=== PATIENT | male | born 1995 | race Caucasian/White ===

== ENCOUNTER 2019-07-18 13:56 | Emergency (ER) | payer OTHER ==
[2019-07-18] MEDS ORDERED: Ondansetron 4 MG Tab.DIS PO ONE (14:34)
--- NOTE | 2019-07-18 14:39 | EDM.PDOC ---
ED HPI GENERAL MEDICAL PROBLEM - General Chief Complaint: Abdominal Pain Stated Complaint: VOMITTING, DIARRHEA Time Seen by Provider: 07/18/19 14:15 Source of Information: Reports: Patient History Limitations: Reports: No Limitations - History of Present Illness INITIAL COMMENTS - FREE TEXT/NARRATIVE: Orlando awoke at 3 pm yesterday with generalized abdominal pain, nonradiating, with some nausea but no vomiting. He had 1 formed stool, followed by numerous watery stools without BRB or mucous detected. Sxs have persisted today, and can keep only small amounts of water orally. There is no PMH of IBD. He has tried no meds. Abdominal, mostly LUQ Pain Score (Numeric/FACES): 5 - Related Data Allergies Allergy/AdvReac Type Severity Reaction Status Date / Time No Known Allergies Allergy Verified 07/18/19 14:06 Home Meds: Home Meds NK [No Known Home Meds] 07/18/19 [History] Past Medical History - Past Health History Medical/Surgical History: Denies Medical/Surgical History Neurological History: Reports: Concussion Psychiatric History: Reports: Anxiety, Depression - Past Surgical History HEENT Surgical History: Reports: Oral Surgery Social & Family History - Family History Family Medical History: Noncontributory - Tobacco Use Smoking Status *Q: Current Every Day Smoker Years of Tobacco use: 8 Packs/Tins Daily: 1 - Caffeine Use Caffeine Use: Reports: Soda - Recreational Drug Use Recreational Drug Type: Reports: Marijuana/Hashish Recreational Drug Use Frequency: Daily ED ROS GENERAL - Review of Systems Review Of Systems: Comprehensive ROS is negative, except as noted in HPI. ED EXAM, GI/ABD - Physical Exam Exam: See Below Exam Limited By: No Limitations General Appearance: Alert, WD/WN, Mild Distress, Thin Eyes: Bilateral: Normal Appearance, EOMI Ears: Normal External Exam Nose: Normal Inspection Throat/Mouth: Normal Inspection, Normal Lips, Normal Gums, Normal Oropharynx, Normal Voice, No Airway Compromise Head: Normocephalic Neck: Normal Inspection, Supple, Non-Tender Respiratory/Chest: Lungs Clear, Chest Non-Tender Cardiovascular: Regular Rate, Rhythm GI/Abdominal Exam: Normal Bowel Sounds, Soft, Non-Tender, No Organomegaly, No Distention, No Mass (Male) Exam: Deferred Rectal (Males) Exam: Deferred Back Exam: Normal Inspection Extremities: Normal Inspection Neurological: Alert, Oriented, CN II-XII Intact, No Motor/Sensory Deficits Psychiatric: Normal Affect, Normal Mood Skin Exam: Warm, Dry, Intact, Normal Color Lymphatic: No Adenopathy Course - Vital Signs Text/Narrative:: Following assessment, Orlando was administered Zofran 4mg ODT as directed pending results of labwork. Screening CBC, BMP and UA are baseline. Probable gastroenteritis. Last Recorded V/S: Last Vital Signs Temp 36.4 C 07/18/19 14:00 Pulse 60 07/18/19 14:00 Resp 18 07/18/19 14:00 BP 134/69 07/18/19 14:00 Pulse Ox 100 07/18/19 14:00 - Orders/Labs/Meds Orders: Active Orders 24 hr Category Date Time Status UA W/MICROSCOPIC [URIN] Stat Lab 07/18/19 14:34 Ordered Labs: Laboratory Tests 07/18/19 07/18/19 Range/Units 14:30 14:30 WBC 6.2 (4.5-12.0) X10-3/uL RBC 5.31 (4.30-5.75) x10(6)uL Hgb 16.5 (13.5-17.8) g/dL Hct 48.1 (30.0-51.3) % MCV 90.5 (80-96) fL MCH 31.1 (27.7-33.6) pg MCHC 34.3 (32.2-35.4) g/dL RDW 12.2 (11.5-15.5) % Plt Count 153 (125-369) X10(3)uL MPV 8.2 (7.4-10.4) fL Neut % (Auto) 77.9 (46-82) % Lymph % (Auto) 9.5 L (13-37) % [place] % (Auto) 9.7 (4-12) % Eos % (Auto) 1 (1.0-5.0) % Baso % (Auto) 2 (0-2) % Neut # (Auto) 4.9 (1.6-8.3) # Lymph # (Auto) 0.6 (0.6-5.0) # [place] # (Auto) 0.6 (0.0-1.3) # Eos # (Auto) 0.0 (0.0-0.8) # Baso # (Auto) 0.1 (0.0-0.2) # Sodium 139 (135-145) mmol/L Potassium 3.5 (3.5-5.3) mmol/L Chloride 104 (100-110) mmol/L Carbon Dioxide 21 (21-32) mmol/L BUN 9 (7-18) mg/dL Creatinine 0.8 (0.70-1.30) mg/dL Est Cr Clr Drug Dosing 156.28 mL/min Estimated GFR (MDRD) > 60 (>60) BUN/Creatinine Ratio 11.3 (9-20) Glucose 117 H (80-116) mg/dL Calcium 8.9 (8.6-10.2) mg/dL Meds: Medications Discontinued Medications Generic Name Dose Route Start Last Admin Trade Name Freq PRN Reason Stop Dose Admin Ondansetron HCl 4 mg 07/18/19 14:34 07/18/19 14:46 Zofran Odt PO 07/18/19 14:35 4 mg ONETIME ONE Administration Departure - Departure Time of Disposition: 15:18 Disposition: Home, Self-Care 01 Condition: Fair Clinical Impression: Gastroenteritis - Discharge Information *PRESCRIPTION DRUG MONITORING PROGRAM REVIEWED*: Not Applicable *COPY OF PRESCRIPTION DRUG MONITORING REPORT IN PATIENT SASCHA: Not Applicable Referrals: Jer Membreno MD [Primary Care Provider] - Forms: ED Department Discharge Sepsis Event Note - Evaluation Sepsis Screening Result: No Definite Risk - Focused Exam Vital Signs: Vital Signs Temp Pulse Resp BP Pulse Ox 07/18/19 14:00 36.4 C 60 18 134/69 100 Date Exam was Performed: 07/18/19 Time Exam was Performed: 15:17 - Problem List & Annotations (1) Gastroenteritis SNOMED Code(s): 43314811 Code(s): K52.9 - NONINFECTIVE GASTROENTERITIS AND COLITIS, UNSPECIFIED Status: Acute Current Visit: Yes Annotation/Comment:: I suggested clear liquids, advance diet as tolerated; Imodium for diarrhea, Tylenol and rest. - Problem List Review Problem List Initiated/Reviewed/Updated: Yes - My Orders Last 24 Hours: My Active Orders 07/18/19 14:34 UA W/MICROSCOPIC [URIN] Stat - Assessment/Plan Last 24 Hours: My Active Orders 07/18/19 14:34 UA W/MICROSCOPIC [URIN] Stat Plan: Follow up with PCP if needed.
[2019-07-18 15:48] VITALS: BP 133/72; PULSE 58
== END 2019-07-18 15:26 | disposition home or self-care (01) ==
LOC: FB.ED 13:56
DX: K52.9 Noninfective gastroenteritis and colitis, unspecified (principal); F17.210 Nicotine dependence, cigarettes, uncomplicated
CPT/HCPCS: 36415; 80048; 85025; 99284; A9270

== ENCOUNTER 2019-07-20 18:59 | Emergency (ER) | payer OTHER ==
[2019-07-20] MEDS ORDERED: Ondansetron 4 MG Tab.DIS PO ONE (19:00)
[2019-07-20] MEDS ORDERED: Sodium Chloride 0.9% 10 ML Syringe FLUSH PRN (19:21)
[2019-07-20] MEDS: Sodium Chloride 0.9% 1,000 ML IV ONE ×2 (19:30→20:45)
--- NOTE | 2019-07-20 19:38 | EDM.PDOC ---
ED HPI GENERAL MEDICAL PROBLEM - General Chief Complaint: Abdominal Pain Stated Complaint: STOMACH ISSUES Time Seen by Provider: 07/20/19 19:33 Source of Information: Reports: Patient History Limitations: Reports: No Limitations - History of Present Illness INITIAL COMMENTS - FREE TEXT/NARRATIVE: Presents with epigastric pain, nausea and diarrhea x 2 days (> 6 unformed stools per day). Patient awoke @1 am on 07/18/19 with these symptoms, he had eaten a burrito for supper prior to going to bed. Diarrhea is watery yellow, non -bloody. No fevers. Denies recent travel or use of antibiotics. No prior abdominal surgeries. He does smoke cigarettes, drinks alcohol occasionally (not recently), and does admit to occasional marijuana use. Onset Date: 07/18/19 Location: Reports: Abdomen Severity: Moderate - Related Data Allergies Allergy/AdvReac Type Severity Reaction Status Date / Time No Known Allergies Allergy Verified 07/20/19 22:01 Home Meds: Home Meds Pantoprazole Sodium [Protonix] 40 mg PO DAILY #15 tablet. 07/20/19 [Rx] Past Medical History Neurological History: Reports: Concussion Psychiatric History: Reports: Anxiety, Depression - Past Surgical History HEENT Surgical History: Reports: Oral Surgery, Other (See Below) Other HEENT Surgeries/Procedures: Wisom teeth extraction. Social & Family History - Family History Family Medical History: Noncontributory - Tobacco Use Smoking Status *Q: Current Every Day Smoker Tobacco Use Within Last Twelve Months: Cigarettes Years of Tobacco use: 8 Packs/Tins Daily: 1 - Caffeine Use Caffeine Use: Reports: Soda - Alcohol Use Alcohol Use History: Yes Alcohol Use Frequency: Rarely - Recreational Drug Use Recreational Drug Use: Yes Recreational Drug Type: Reports: Marijuana/Hashish Other Recreational Drug Type: States he used marijuana earlier today. ED ROS GENERAL - Review of Systems Review Of Systems: Comprehensive ROS is negative, except as noted in HPI. ED EXAM, GI/ABD - Physical Exam Exam: See Below Exam Limited By: No Limitations General Appearance: Alert, WD/WN, No Apparent Distress Nose: Normal Inspection Throat/Mouth: No Airway Compromise Head: Atraumatic, Normocephalic Respiratory/Chest: No Respiratory Distress, Lungs Clear, Normal Breath Sounds Cardiovascular: Regular Rate, Rhythm, No Murmur GI/Abdominal Exam: Normal Bowel Sounds, Soft, No Distention, Tender (epigastric) Back Exam: Normal Inspection, Full Range of Motion Extremities: Normal Range of Motion Neurological: Alert, Normal Cognition, No Motor/Sensory Deficits Psychiatric: Normal Affect, Normal Mood Skin Exam: Warm, Dry, Intact Course - Vital Signs Last Recorded V/S: Last Vital Signs Temp 36.8 C 07/20/19 19:05 Pulse 67 07/20/19 19:05 Resp 18 07/20/19 19:05 BP 136/71 07/20/19 19:05 Pulse Ox 99 07/20/19 19:05 - Orders/Labs/Meds Orders: Active Orders 24 hr Category Date Time Status Abdomen Pelvis w Cont [CT] Stat Exams 07/20/19 19:26 Taken CULTURE URINE [RM] Stat Lab 07/20/19 22:00 Ordered OVA + PARASITE EXAM Stat Lab 07/20/19 21:30 Received STOOL CULTURE Stat Lab 07/20/19 21:30 Received Sodium Chloride 0.9% [Saline Flush] Med 07/20/19 19:21 Active 10 ml FLUSH ASDIRECTED PRN Saline Lock Insert [OM.PC] Routine Oth 07/20/19 19:21 Ordered Medication Orders Sodium Chloride (Saline Flush) 10 ml FLUSH ASDIRECTED PRN PRN Reason: Keep Vein Open Labs: Laboratory Tests 07/20/19 07/20/19 07/20/19 Range/Units 19:50 19:50 19:50 WBC 6.7 (4.5-12.0) X10-3/uL RBC 5.39 (4.30-5.75) x10(6)uL Hgb 16.6 (13.5-17.8) g/dL Hct 48.4 (30.0-51.3) % MCV 89.7 (80-96) fL MCH 30.8 (27.7-33.6) pg MCHC 34.3 (32.2-35.4) g/dL RDW 11.9 (11.5-15.5) % Plt Count 144 (125-369) X10(3)uL MPV 8.2 (7.4-10.4) fL Neut % (Auto) 75.0 (46-82) % Lymph % (Auto) 8.6 L (13-37) % [place] % (Auto) 14.5 H (4-12) % Eos % (Auto) 1 (1.0-5.0) % Baso % (Auto) 1 (0-2) % Neut # (Auto) 4.8 (1.6-8.3) # Lymph # (Auto) 0.6 (0.6-5.0) # [place] # (Auto) 1.0 (0.0-1.3) # Eos # (Auto) 0.1 (0.0-0.8) # Baso # (Auto) 0.1 (0.0-0.2) # Sodium 131 L (135-145) mmol/L Potassium 3.4 L (3.5-5.3) mmol/L Chloride 96 L D (100-110) mmol/L Carbon Dioxide 21 (21-32) mmol/L BUN 10 (7-18) mg/dL Creatinine 1.0 (0.70-1.30) mg/dL Est Cr Clr Drug Dosing 125.02 mL/min Estimated GFR (MDRD) > 60 (>60) BUN/Creatinine Ratio 10.0 (9-20) Glucose 108 (80-116) mg/dL Calcium 8.3 L (8.6-10.2) mg/dL Total Bilirubin 1.3 (0.1-1.3) mg/dL AST 39 H (5-25) IU/L ALT 23 (12-36) U/L Alkaline Phosphatase 63 (56-112) IU/L Total Protein 6.4 (6.0-8.0) g/dL Albumin 3.2 L (3.5-5.2) g/dL Globulin 3.2 g/dL Albumin/Globulin Ratio 1.0 Lipase 80 (73-393) U/L Urine Color (YELLOW) Urine Appearance (CLEAR) Urine pH (5.0-6.5) Ur Specific [place] (1.010-1.025) Urine Protein (NEGATIVE) mg/dL Urine Glucose (UA) (NORMAL) mg/dL Urine Ketones (NEGATIVE) mg/dL Urine Occult Blood (NEGATIVE) Urine Nitrite (NEGATIVE) Urine Bilirubin (NEGATIVE) Urine Urobilinogen (NEGATIVE) mg/dL Ur Leukocyte Esterase (NEGATIVE) Urine RBC (0-5) Urine WBC (0-5) Ur Squamous Epith Cells (NS,R,O) Urine Bacteria (NS) 07/20/19 Range/Units 21:30 WBC (4.5-12.0) X10-3/uL RBC (4.30-5.75) x10(6)uL Hgb (13.5-17.8) g/dL Hct (30.0-51.3) % MCV (80-96) fL MCH (27.7-33.6) pg MCHC (32.2-35.4) g/dL RDW (11.5-15.5) % Plt Count (125-369) X10(3)uL MPV (7.4-10.4) fL Neut % (Auto) (46-82) % Lymph % (Auto) (13-37) % [place] % (Auto) (4-12) % Eos % (Auto) (1.0-5.0) % Baso % (Auto) (0-2) % Neut # (Auto) (1.6-8.3) # Lymph # (Auto) (0.6-5.0) # [place] # (Auto) (0.0-1.3) # Eos # (Auto) (0.0-0.8) # Baso # (Auto) (0.0-0.2) # Sodium (135-145) mmol/L Potassium (3.5-5.3) mmol/L Chloride (100-110) mmol/L Carbon Dioxide (21-32) mmol/L BUN (7-18) mg/dL Creatinine (0.70-1.30) mg/dL Est Cr Clr Drug Dosing mL/min Estimated GFR (MDRD) (>60) BUN/Creatinine Ratio (9-20) Glucose (80-116) mg/dL Calcium (8.6-10.2) mg/dL Total Bilirubin (0.1-1.3) mg/dL AST (5-25) IU/L ALT (12-36) U/L Alkaline Phosphatase (56-112) IU/L Total Protein (6.0-8.0) g/dL Albumin (3.5-5.2) g/dL Globulin g/dL Albumin/Globulin Ratio Lipase (73-393) U/L Urine Color Yellow (YELLOW) Urine Appearance Clear (CLEAR) Urine pH 6.5 (5.0-6.5) Ur Specific [place] 1.010 (1.010-1.025) Urine Protein 30 H (NEGATIVE) mg/dL Urine Glucose (UA) Normal (NORMAL) mg/dL Urine Ketones 50 H (NEGATIVE) mg/dL Urine Occult Blood Negative (NEGATIVE) Urine Nitrite Positive H (NEGATIVE) Urine Bilirubin Negative (NEGATIVE) Urine Urobilinogen Normal (NEGATIVE) mg/dL Ur Leukocyte Esterase Negative (NEGATIVE) Urine RBC 0-5 (0-5) Urine WBC 0-5 (0-5) Ur Squamous Epith Cells Few H (NS,R,O) Urine Bacteria Moderate H (NS) Meds: Medications Generic Name Dose Route Start Last Admin Trade Name Freq PRN Reason Stop Dose Admin Sodium Chloride 10 ml 07/20/19 19:21 Saline Flush FLUSH ASDIRECTED PRN Keep Vein Open Discontinued Medications Generic Name Dose Route Start Last Admin Trade Name Freq PRN Reason Stop Dose Admin Azithromycin 1,000 mg 07/20/19 21:12 07/20/19 21:16 Zithromax PO 07/20/19 21:13 1,000 mg ONETIME ONE Administration Hydromorphone HCl 0.5 mg 07/20/19 19:25 07/20/19 19:39 Dilaudid IVPUSH 07/20/19 19:26 0.5 mg ONETIME ONE Administration Sodium Chloride 1,000 mls @ 999 mls/hr 07/20/19 19:21 07/20/19 19:30 Normal Saline IV 07/20/19 20:21 999 mls/hr .BOLUS ONE Administration Sodium Chloride 1,000 mls @ 999 mls/hr 07/20/19 20:23 07/20/19 20:45 Normal Saline IV 07/20/19 21:23 999 mls/hr .BOLUS ONE Administration Iopamidol 100 ml 07/20/19 19:37 07/20/19 19:53 Isovue-370 (76%) IV 07/20/19 19:38 98 ml ONETIME ONE Administration Ondansetron HCl 4 mg 07/20/19 19:25 07/20/19 19:40 Zofran IVPUSH 07/20/19 19:26 4 mg ONETIME ONE Administration Pantoprazole Sodium 40 mg 07/20/19 19:23 07/20/19 19:40 Protonix Iv IVPUSH 04/26/20 19:24 40 mg ONETIME ONE Administration - Radiology Interpretation Free Text/Narrative:: CT Abd/Pelvis w/IV contrast: Probable enterocolitis. The appendix cannot be identified with confidence, no inflammatory changes in the right lower quadrant noted however. (Dr. Rober Moore) - Re-Assessments/Exams Free Text/Narrative Re-Assessment/Exam: 07/20/19 22:10 Symptoms improved after Protonix, Dilaudid, and Zofran. Departure - Departure Time of Disposition: 22:11 Disposition: Home, Self-Care 01 Condition: Good Clinical Impression: Enteritis - Discharge Information *PRESCRIPTION DRUG MONITORING PROGRAM REVIEWED*: No *COPY OF PRESCRIPTION DRUG MONITORING REPORT IN PATIENT SASCHA: Not Applicable Prescriptions: Pantoprazole Sodium [Protonix] 40 mg PO DAILY #15 tablet.dr Instructions: Viral Gastroenteritis, Adult Referrals: Jer Membreno MD [Primary Care Provider] - Forms: ED Department Discharge Additional Instructions: Fill the prescription for Protonix and take as directed. Take the Zofran as needed for nausea. Drink plenty of clear fluids, advance your diet as tolerated. Follow up with your primary physician in 2 days if symptoms don't improve. Return to the ER if symptoms worsen. Sepsis Event Note - Evaluation Sepsis Screening Result: No Definite Risk - Focused Exam Vital Signs: Vital Signs Temp Pulse Resp BP Pulse Ox 07/20/19 19:05 36.8 C 67 18 136/71 99 Date Exam was Performed: 07/20/19 Time Exam was Performed: 22:08 - My Orders Last 24 Hours: My Active Orders 07/20/19 19:21 Sodium Chloride 0.9% [Saline Flush] 10 ml FLUSH ASDIRECTED PRN Saline Lock Insert [OM.PC] Routine 07/20/19 19:26 Abdomen Pelvis w Cont [CT] Stat 07/20/19 21:30 OVA + PARASITE EXAM Stat STOOL CULTURE Stat 07/20/19 22:00 CULTURE URINE [RM] Stat - Assessment/Plan Last 24 Hours: My Active Orders 07/20/19 19:21 Sodium Chloride 0.9% [Saline Flush] 10 ml FLUSH ASDIRECTED PRN Saline Lock Insert [OM.PC] Routine 07/20/19 19:26 Abdomen Pelvis w Cont [CT] Stat 07/20/19 21:30 OVA + PARASITE EXAM Stat STOOL CULTURE Stat 07/20/19 22:00 CULTURE URINE [RM] Stat
[2019-07-20] MEDS: HYDROmorphone 2 MG/ML SDV IVPUSH ONE (19:39)
[2019-07-20] MEDS: Ondansetron 4 MG/2 ML SDV IVPUSH ONE (19:40)
[2019-07-20] MEDS: Pantoprazole 40 MG Vial IVPUSH ONE (19:40)
[2019-07-20] MEDS: Iopamidol 755 Mg/ML 100 ML Bottle IV ONE (19:53)
[2019-07-20] MEDS: Azithromycin 500 MG Tab PO ONE (21:16)
[2019-07-20] MEDS ORDERED: Dicyclomine 10 MG Cap PO ONE (22:08)
[2019-07-20 22:49] VITALS: BP 126/72; PULSE 59
== END 2019-07-20 22:25 | disposition home or self-care (01) ==
LOC: FB.ED 18:59
DX: K52.9 Noninfective gastroenteritis and colitis, unspecified (principal)
CPT/HCPCS: 36415; 74177; 80053; 81001; 83690; 85025; 87045; 87046; 87086; 87177; 87209; 87230; 87427; 96361; 96374; 96375; 99284-25; A9270-GY; C9113; J1170; J2405; J7030; Q9967